=== PATIENT | female | born 1950 | race African-American/Black ===

== ENCOUNTER 2020-01-28 03:07 | Emergency (ER) | payer MEDICARE, SELFPAY ==
--- NOTE | ~2020-01-28 | XR_ITS ---
EXAMINATION:XR_[id number]_CR, XR thoracic spine 2V DATE: 01/28/2020 04:57 INDICATION: Left-sided neck pain TECHNIQUE: 1. AP, lateral and odontoid views of the cervical spine are provided. 2. AP, lateral and lateral swimmer's views of the thoracic spine were obtained. COMPARISON: Lumbar spine MR dated 09/06/2017 FINDINGS: Cervical spine: C4-C7 laminectomies with instrumented posterior spinal fusion extending from C4 through T1 with bilat eral vertical ana lilia and screw fixation including lateral mass screws bilaterally at C4-C5, on the right at C6, and the left at C7 and with bilateral pedicle screws at T1. 1-2 mm retrolisthesis at C4-C5. V ertebral body heights are normal. Hypertrophic anterior endplate osteophytes from C4 through C7. Mild disc height loss at C5-6 and C6-7 with suggestion of possible developing fusion at the former. Odont oid is intact. Normal atlantoaxial interval. Prevertebral soft tissues are normal. Thin curvilinear wire-like metallic densities projecting over the skull on the lateral projection which are likely ex ternal to the patient. Thoracic spine: Alignment is normal. Vertebral body heights are normal. Severe disc height loss with degenerative end plate changes at T7-T8. Interval progression in additional severe disc height loss with prominent Mod ic type III sclerotic endplate changes at T11-T12. Mild disc height loss at many of the remaining lev els in the thoracic spine. Lung volumes appear small with elevation the right hemidiaphragm on the fr ontal projection. No evident airspace opacities, pleural effusion or pneumothorax in the visualized l ungs. IMPRESSION: 1. Moderate cervical thoracic spondylosis with C4-T1 instrumented posterior spinal fusion. Reviewed, dictated and finalized at location A. IMPRESSION: 1. Moderate cervical thoracic spondylosis with C4-T1 instrumented posterior spi nal fusion.
[2020-01-28 03:08] VITALS: BP 147/96; PULSE 85; RESP 15; TEMP 36.4; O2SAT 100
--- NOTE | 2020-01-28 04:25 | ED.BACK ---
HPI - Back Pain/Injury General Chief Complaint: Back Pain/Injury Stated Complaint: Left back pain Time Seen by Provider: 01/28/20 04:16 History of Present Illness HPI Narrative: Patient presents to the ED with her daughter for left-sided back pain. She has been going to physical therapy and she had her last session 3 days ago. In 2 days ago she started having left back pain. It hurts up by her shoulder blade, and down by her flank, and radiates in under her left breast. It is worse with lying flat. Better with sitting up. And intermediate when laying on either her right or left side. She normally takes gabapentin 300 mg 3 or 4 times a day for her pain. She also takes a muscle relaxer. Neither of these are helping. She is a dialysis patient. Is not been sick recently. She does not smoke cigarettes,, or do drug, or drink alcohol. MD elicited complaint: back pain Pertinent past history: back surgery (She has had both cervical and lumbar laminectomies.) Onset (ago): day(s) Timing: constant Severity: severe Pain scale (0-10): 5 Similar Symptoms Previously: Yes Related Data Home Medications Medication Instructions Recorded Confirmed amlodipine 10 mg tablet 10 mg PO DAILY 06/11/19 09/10/19 aspirin 81 mg tablet,delayed 81 mg PO DAILY 06/11/19 09/10/19 release ferrous sulfate 325 mg (65 mg 325 mg PO DAILY 06/11/19 09/10/19 iron) tablet gabapentin 300 mg capsule 300 mg PO DAILY 06/11/19 09/10/19 insulin glargine 100 unit/mL (3 30 unit SUB-Q DAILY 06/11/19 09/10/19 mL) subcutaneous pen magnesium 30 mg tablet 30 mg PO .q other day tablet 06/11/19 09/10/19 tizanidine 2 mg tablet 2 mg PO TID PRN 06/11/19 09/10/19 fluticasone propionate 50 2 spray NASAL DAILY 09/10/19 09/10/19 mcg/actuation nasal spray,suspension kpsalbjhdiov-otjaezlh-rmdarl 1 tablet PO DAILY 09/10/19 09/10/19 Allergies Allergy/AdvReac Type Severity Reaction Status Date / Time codeine Allergy Severe Hallucinati Verified 01/28/20 03:11 ng Sulfa (Sulfonamide Allergy Mild Itching Verified 08/10/20 03:11 Antibiotics) Review of Systems Review of Systems: Narrative: CONSTITUTIONAL: Denies fever, chills, or sweats. EYES: Denies visual changes, redness, or discharge. ENT: Denies rhinorrhea, congestion, sore throat, or otalgia. CARDIOVASCULAR: Denies chest pain, palpitations, or edema. RESPIRATORY: Denies cough or dyspnea. GASTROINTESTINAL: Denies abdominal pain, nausea, vomiting, or diarrhea. GENITOURINARY: Denies dysuria or hematuria. SKIN: Denies rash or itching. MUSCULOSKELETAL: She has back pain, but not joint pain, or myalgia. NEUROLOGIC: Denies headache, numbness, or weakness.. All systems reviewed & are unremarkable except as noted in HPI and below PMFSH Past Medical History Medical History Chronic kidney disease (CKD) stage G3a/A2, moderately decreased glomerular filtration rate (GFR) between 45-59 mL/min/1.73 square meter and albuminuria creatinine ratio between 30-299 mg/g Diabetes mellitus Essential (primary) hypertension Hypercalcemia Hyperparathyroidism Osteopenia Surgical History Surgical History History of back surgery History of neck surgery Family History Family History (Updated 12/07/17 @ 15:08 by DOCTOR UNKNOWN) Mother Hypertension, Onset Age: 53 Father Family history of lung cancer Sibling Family history of malignant neoplasm of ovary Family history of congestive heart failure Social History Social History Smoking status: Never smoker Alcohol intake: never Gender identity (if verbalized by the patient): Female Exam Narrative: Exam Narrative: GENERAL: Well-appearing, well-nourished, and in no acute distress. Curly wig. HEAD: Normocephalic, atraumatic. EYES: PERRLA and EOMI. ENT: Nares clear, no rhinorrhea or epista
[2020-01-28 05:26] VITALS: BP 148/94; PULSE 82; RESP 16; TEMP 36.9; O2SAT 100
== END 2020-01-28 05:26 | disposition home or self-care (01) ==
PROVIDERS: Emergency Provider Emergency Medicine; PCP Internal Medicine
DX: M54.14 Radiculopathy, thoracic region (principal); E11.22 Type 2 diabetes mellitus with diabetic chronic kidney disease; I12.9 Hypertensive chronic kidney disease with stage 1 through stage 4 chronic kidney disease, or unspecified chronic kidney disease; N18.3 Chronic kidney disease, stage 3 (moderate); Z79.82 Long term (current) use of aspirin; Z79.4 Long term (current) use of insulin; E83.52 Hypercalcemia; M85.80 Other specified disorders of bone density and structure, unspecified site
CPT/HCPCS: 72040; 72070; 99283; A9270

== ENCOUNTER → 2020-06-03 13:52 | Outpatient (CLI) | payer MEDICARE, SELFPAY ==
--- NOTE | ~2020-06-03 | MM_ITS ---
EXAMINATION: MM screening jensen BI w james HISTORY: Screening mammogram TECHNIQUE: Craniocaudal and mediolateral oblique 3-D tomosynthesis images were obtained and synthetic 2-D images were generated. CAD analysis was submitted and interpreted. COMPARISON: 01/23/2016, 01/20/2016 BREAST PARENCHYMAL COMPOSITION: The breasts are almost entirely fatty. FINDINGS: There is no evidence of suspicious mass, calcification, or architectural distortion to sugg est malignancy in either breast. There has been no suspicious interval change. IMPRESSION: 1. No mammographic evidence of malignancy. 2. Recommend routine screening mammography in one year. BI-RADS Category 1: Negative Reviewed, dictated and finalized at location A. Y PACKER
== END ==
PROVIDERS: PCP Internal Medicine; Visit Provider Internal Medicine
DX: Z12.31 Encounter for screening mammogram for malignant neoplasm of breast (principal)
CPT/HCPCS: 77063; 77067

== ENCOUNTER 2020-06-11 10:20 | Outpatient (CLI) | payer MEDICARE, SELFPAY ==
--- NOTE | ~2020-06-11 | US_ITS ---
Additional imaging US 06/25/2020 08:19 Indication: Splenomegaly. Procedure: High-resolution Limited ultrasound of the spleen Comparison: No prior studies for comparison. Findings: Splenic echotexture is within normal limits without focal mass or cyst. Splenic size is nor mal measuring 7.8 cm. Impression: 1: Normal spleen. Reviewed, dictated and finalized at location A. IAC CATHETERIZATION TECHNOLOGIST Impression: 1: Normal spleen.
--- NOTE | ~2020-06-11 | US_ITS ---
EXAMINATION: US soft tissue abdomen INDICATION: Mass and swelling of the left upper quadrant TECHNIQUE: Targeted high-resolution ultrasound is performed in the area of clinical concern. COMPARISON: None available FINDINGS: No discrete sonographically detected mass is identified. Normal subcutaneous tissues are se en. No abdominal wall hernia is appreciated. IMPRESSION: 1. No specific sonographic correlate is identified for the patient's left upper quadrant mass. Reviewed, dictated and finalized at location A. INE OILER
== END 2020-06-11 10:21 | disposition home or self-care (01) ==
PROVIDERS: PCP Internal Medicine; Visit Provider Internal Medicine
DX: R19.02 Left upper quadrant abdominal swelling, mass and lump (principal)
CPT/HCPCS: 76705

== ENCOUNTER 2020-12-29 14:35 | Emergency (ER) | payer MEDICARE, SELFPAY ==
--- NOTE | ~2020-12-29 | XR_ITS ---
EXAMINATION: XR chest 2V EXAM DATE: 12/29/2020 15:17 INDICATION: Cough for one month. History diabetes, hypertension. TECHNIQUE: Frontal and lateral projections of the chest obtained and reviewed. Comparison is made to prior examination from 04/28/2016. FINDINGS: The lungs are clear. There are no pleural effusions. The cardiomediastinal silhouette is within normal limits. There is no pneumothorax suspected. Cervicothoracic fusion hardware. There is tortuosity of the aorta. IMPRESSION: No acute cardiopulmonary findings. Reviewed, dictated and finalized at location A.
[2020-12-29 14:39] VITALS: BP 142/87; PULSE 82; RESP 16; TEMP 36.2; O2SAT 98
[2020-12-29 15:54] VITALS: O2SAT 98
--- NOTE | 2020-12-29 16:28 | ED.URI ---
HPI - URI/Sore Throat General Chief Complaint: Upper Respiratory Infection Stated Complaint: coughing [id number], drainage Time Seen by Provider: 12/29/20 15:29 Source: patient Mode of arrival: ambulatory Limitations: no limitations History of Present Illness HPI Narrative: This is a 70 year old female that presents to the ER for cough present over the last month. Reports cough, congestion and rhinorrhea. Denies fever, chest pain or shortness of breath. Related Data Home Medications Medication Instructions Recorded Confirmed amlodipine 10 mg tablet 10 mg PO DAILY 06/11/19 12/16/20 aspirin 81 mg tablet,delayed 81 mg PO DAILY 06/11/19 12/16/20 release ferrous sulfate 325 mg (65 mg 325 mg PO DAILY 06/11/19 12/16/20 iron) tablet fluticasone propionate 50 2 spray NASAL DAILY 09/10/19 12/16/20 mcg/actuation nasal spray,suspension pldxvytkrpbg-hogkohnt-wkmtmk tablet 1 tablet PO DAILY 09/10/19 12/16/20 tizanidine 2 mg tablet 4 mg PO ONCE PRN tablet 01/29/20 12/16/20 magnesium oxide 400 mg PO .COMPLEX 04/28/20 12/16/20 Allergies Allergy/AdvReac Type Severity Reaction Status Date / Time codeine Allergy Severe Hallucinati Verified 04/28/20 09:59 ng Sulfa (Sulfonamide Allergy Mild Itching Verified 04/28/20 09:59 Antibiotics) Review of Systems Review of Systems: Narrative: CONSTITUTIONAL: Denies fever ENT: Reports rhinorrhea, congestion. Denies sore throat CARDIOVASCULAR: Denies chest pain RESPIRATORY: Reports cough. Denies dyspnea. All systems reviewed & are unremarkable except as noted in HPI and below PMFSH Past Medical History Medical History (Updated 12/29/20 @ 16:37 by Sowmya Kaur PA-C) Chronic kidney disease (CKD) stage G3a/A2, moderately decreased glomerular filtration rate (GFR) between 45-59 mL/min/1.73 square meter and albuminuria creatinine ratio between 30-299 mg/g Diabetes mellitus Essential (primary) hypertension Hypercalcemia Hyperparathyroidism Osteopenia Surgical History Surgical History History of back surgery History of neck surgery Family History Family History (Updated 12/07/17 @ 15:08 by DOCTOR UNKNOWN) Mother Hypertension, Onset Age: 53 Father Family history of lung cancer Sibling Family history of malignant neoplasm of ovary Family history of congestive heart failure Social History Social History Smoking status: Never smoker Alcohol intake: never Gender identity (if verbalized by the patient): Female Exam Narrative: Exam Narrative: GENERAL: Well-appearing, well-nourished, and in no acute distress. HEAD: Normocephalic, atraumatic. EYES: EOMI. ENT: Nares clear, no rhinorrhea or epistaxis. Mucous membranes moist. Oropharynx without tonsillar hypertrophy exudate or other lesions. Bilateral TMs pearly corrales non-bulging NECK: Supple. No adenopathy or masses. CHEST: Clear to auscultation. No respiratory distress. No wheezes rales or rhonchi HEART: Regular rate and rhythm. No murmur heard. Normal peripheral pulses. EXTREMITIES: Normal range of motion. No edema. SKIN: Warm, dry, no rash. NEURO: No focal deficits. Alert and oriented x3. PSYCH: Normal mood and affect Course Vital Signs Vital signs: Vital Signs Temperature 97.2 F L 12/29/20 14:39 Pulse Rate 82 12/29/20 14:39 Respiratory Rate 16 12/29/20 14:39 Blood Pressure 142/87 H 12/29/20 14:39 Pulse Oximetry 98 12/29/20 14:39 Temperature 97.2 F L 12/29/20 14:39 Pulse Rate 82 12/29/20 14:39 Respiratory Rate 16 12/29/20 14:39 Blood Pressure 142/87 H 12/29/20 14:39 Pulse Oximetry 98 12/29/20 15:54 MDM - URI/Sore Throat MDM Narrative Medical decision making narrative: Patient presents to the ER for cough ongoing for the last month. She is afebrile and nontoxic appearing. Oxygen saturation is normal on room air. She denies any chest pain
== END 2020-12-29 16:53 | disposition home or self-care (01) ==
PROVIDERS: Emergency Provider Emergency Medicine; PCP Internal Medicine
DX: J20.9 Acute bronchitis, unspecified (principal); E11.22 Type 2 diabetes mellitus with diabetic chronic kidney disease; I12.9 Hypertensive chronic kidney disease with stage 1 through stage 4 chronic kidney disease, or unspecified chronic kidney disease; N18.31 Chronic kidney disease, stage 3a
CPT/HCPCS: 71046; 99283

== ENCOUNTER → 2021-01-14 13:13 | Outpatient (CLI) | payer MEDICARE, SELFPAY ==
--- NOTE | ~2021-01-14 | XR_ITS ---
EXAMINATION: XR hip RT min 2V DATE: 01/14/2021 13:31 INDICATION: Right hip pain. Neuralgia and neuritis. TECHNIQUE: Anteroposterior and frog-leg lateral views of the right hip were obtained. COMPARISON: None. FINDINGS: Alignment is normal. No fracture or suspected avascular necrosis. At least mild osteoarthritis at the right hip with moderate size marginal osteophytes about the femoral head and acetabulum but with onl y mild joint space narrowing evident on the frontal projections. Soft tissues are unremarkable. IMPRESSION: 1. Mild right hip osteoarthritis. Reviewed, dictated and finalized at location A.
== END ==
PROVIDERS: PCP Internal Medicine; Visit Provider Internal Medicine
DX: M79.2 Neuralgia and neuritis, unspecified (principal); M16.11 Unilateral primary osteoarthritis, right hip
CPT/HCPCS: 73502

== ENCOUNTER 2021-01-18 09:41 | Emergency (ER) | payer MEDICARE, SELFPAY ==
--- NOTE | ~2021-01-18 | CT_ITS ---
EXAMINATION: CT abdomen pelvis w con DATE: 01/18/2021 12:29 INDICATION: Generalized low back pain TECHNIQUE: Computed tomography (CT) of the abdomen and pelvis was performed with 100 mL Omnipaque-350 intravenous contrast. Automated exposure control and iterative reconstruction technique were employe d. The dose-length product was 1476.29 mGy-cm. COMPARISON: None FINDINGS: Lung bases are clear. Heart size is normal. No pericardial or pleural effusion. Liver, gallbladder, p ancreas and bilateral adrenal glands are normal. A few small splenic calcific lesions consistent with old granulomatous disease. Bilateral low-attenuation renal cysts the largest on the right measuring 2 cm. Bladder, uterus and right adnexa are normal. 1.2 cm left adnexal cyst/follicle. No abnormal bow el wall thickening or obstruction. Moderate amount of stool in the distal colon most prominent at the rectum. No free intraperitoneal gas or fluid. No pathologically enlarged abdominal or pelvic lymphad enopathy. Chronic severe disc height loss with sclerotic and erosive endplate changes at T11-T12 whic h can be seen on radiographs dated 01/28/2020. Mild lumbar degenerative disc disease with severe bilat eral lower lumbar facet osteoarthritis. L5 is sacralized on the right. Bone island at the right sacra l ala. IMPRESSION: 1. No acute intra-abdominal/pelvic process. 2. Thoracal lumbar spondylosis most notable for severe degenerative disc disease at T11-T12 and sever e lower lumbar facet osteoarthritis. 3. Small sliding-type hiatal hernia. Reviewed, dictated and finalized at location A. IMPRESSION: 1. No acute intra-abdominal/pelvic process. 2. Thoracal lumbar spondylosis most notable for severe degenerative disc diseas e at T11-T12 and severe lower lumbar facet osteoarthritis. 3. Small sliding-type hiatal hernia.
--- NOTE | ~2021-01-18 | XR_ITS ---
EXAMINATION: XR chest 1V portable DATE: 01/18/2021 10:33 INDICATION: Cough TECHNIQUE: frontal view of the chest was obtained. COMPARISON: Chest radiograph dated 12/29/20 FINDINGS: Chronic elevation of the right hemidiaphragm. No focal airspace opacities, pulmonary edema, pleural e ffusion or pneumothorax. The cardiomediastinal silhouette is normal. Extremity posterior spinal fusio n in the mid to lower cervical spine. IMPRESSION: 1. Elevation of the right hemidiaphragm. No acute cardiopulmonary disease. Reviewed, dictated and finalized at location A.
[2021-01-18 09:53] VITALS: BP 141/95; PULSE 100; RESP 22; TEMP 36.3; O2SAT 100
[2021-01-18 09:58] VITALS: PULSE 92
--- NOTE | 2021-01-18 09:58 | ECG_ITS ---
Measurements Intervals [place] Rate: 71 P: 37 ND: 139 QRS: 9 QRSD: 84 T: 30 QT: 366 QTc: 398 Interpretive Statements SINUS RHYTHM WITH SINUS ARRHYTHMIA BORDERLINE T WAVE ABNORMALITY- INFERIOR LEADS BASELINE ARTIFACT- II, III BORDERLINE ECG Electronically Signed On 01-18-2021 11:47:55 CDT by Kumar Olmstead D.O.
[2021-01-18 09:59] VITALS: O2SAT 100
[2021-01-18 10:26] LABS: Basophils Percent Auto 0.6 % (0.2-1.2); Eosinophils Absolute Auto 0.1 K/mm3 (0-0.3); Eosinophils Percent Auto 2.9 % (0-4.4); Hematocrit 35.7 % (37.0-47.0); Hemoglobin 11.6 g/dL (12.0-15.0); Immature Granulocyte Absolute 0.01 K/mm3 (0.00-0.031); Immature Granulocyte Percent A 0.2 % (0-0.5); Lymphocytes Absolute Auto 1.53 K/mm3 (0.9-3.2); Lymphocytes Percent Auto 31.5 % (18.3-44.2); Mean Corpuscular HGB Conc 32.5 g/dl (32-36); Mean Corpuscular Hemoglobin 26.9 pg (26-34); Mean Corpuscular Volume 82.6 fl (80-100); Monocytes Absolute Auto 0.4 K/mm3 (0.1-0.6); Monocytes Percent Auto 8.5 % (2.6-8.5); Neutrophils Absolute Auto 2.7 K/mm3 (1.3-6.7); Neutrophils Percent Auto 56.3 % (45.5-73.1); Platelet Count Result 323 k/mm3 (150-375); Red Blood Count 4.32 M/mm3 (4.2-5.4); White Blood Count 4.9 K/mm3 (4.5-10.0)
[2021-01-18 10:37] LABS: Anion Gap 11 mmol/L (8-16); Blood Urea Nitrogen 27 mg/dL (7-17); Calcium 12.1 mg/dL (8.4-10.2); Carbon Dioxide 22 mmol/L (22-30); Chloride 105 mmol/L (98-107); Estimated CRCL calculation 36 ml/min; Estimated Glomerular Filt Rate 32; Glucose 157 mg/dL (65-110); Potassium 4.6 mmol/L (3.4-5.0); Sodium 138 mmol/L (137-145)
[2021-01-18 11:27] LABS: INR 0.9; Prothrombin Time 11.7 Seconds (11.1-14.7)
[2021-01-18 11:28] LABS: Partial Thromboplastin Time 28.3 SECONDS (22.3-36.8)
[2021-01-18 11:30] LABS: D Dimer 0.31 ug/mL (<0.48)
[2021-01-18 11:37] LABS: NT Pro B Type Natriuretic Pept 159 pg/mL (5-100); Troponin I < 0.012 ng/mL (0.000-0.034)
[2021-01-18 12:13] VITALS: BP 118/72; PULSE 77; RESP 18; O2SAT 100
--- NOTE | 2021-01-18 12:49 | ED.SOB ---
HPI - SOB/Dyspnea General Chief Complaint: Shortness of Breath/Dyspnea Stated Complaint: SOB Time Seen by Provider: 01/18/21 10:17 Source: patient and RN notes reviewed Mode of arrival: ambulatory Limitations: no limitations History of Present Illness HPI Narrative: Patient is a 70-year-old female who presents to emergency department for evaluation of cough that is nonproductive initially began at the beginning of December was seen at an urgent care had seen primary care as well and was given steroids and treated as bronchitis she had interval improvement but continues to have this cough that she cannot shake she thought maybe it was postnasal drip which was addressed with medication also given an inhaler presents today noting that she continues to have the cough with pleuritic chest discomfort and now is having some abdominal discomfort as well. Patient denies history of lung disease Related Data Home Medications Medication Instructions Recorded Confirmed amlodipine 10 mg tablet 10 mg PO DAILY 06/11/19 01/05/21 aspirin 81 mg tablet,delayed 81 mg PO DAILY 06/11/19 01/05/21 release ferrous sulfate 325 mg (65 mg 325 mg PO DAILY 06/11/19 01/05/21 iron) tablet fluticasone propionate 50 2 spray NASAL DAILY 09/10/19 01/05/21 mcg/actuation nasal spray,suspension yzjircndoznc-limgmfmw-luvdnd tablet 1 tablet PO DAILY 09/10/19 01/05/21 tizanidine 2 mg tablet 4 mg PO ONCE PRN tablet 01/29/20 01/05/21 magnesium oxide 400 mg PO .COMPLEX 04/28/20 01/05/21 Allergies Allergy/AdvReac Type Severity Reaction Status Date / Time Sulfa (Sulfonamide Allergy Mild Itching Verified 01/18/21 10:01 Antibiotics) codeine AdvReac Severe Hallucinati Verified 01/18/21 10:01 ng Review of Systems Review of Systems: All systems reviewed & are unremarkable except as noted in HPI and below PMFSH Past Medical History Medical History Chronic kidney disease (CKD) stage G3a/A2, moderately decreased glomerular filtration rate (GFR) between 45-59 mL/min/1.73 square meter and albuminuria creatinine ratio between 30-299 mg/g Diabetes mellitus Essential (primary) hypertension Hypercalcemia Hyperparathyroidism Low back pain Osteopenia Surgical History Surgical History History of back surgery History of neck surgery Family History Family History (Updated 12/07/17 @ 15:08 by DOCTOR UNKNOWN) Mother Hypertension, Onset Age: 53 Father Family history of lung cancer Sibling Family history of malignant neoplasm of ovary Family history of congestive heart failure Social History Social History Smoking status: Never smoker Alcohol intake: never Gender identity (if verbalized by the patient): Female Exam Narrative: GENERAL: Well-appearing, well-nourished, and in no acute distress. HEAD: Normocephalic, atraumatic. EYES: PERRLA and EOMI. ENT: Nares clear, no rhinorrhea or epistaxis. Mucous membranes moist. NECK: Supple. No adenopathy or masses. CHEST: Clear to auscultation. No respiratory distress. No wheezes rales or rhonchi HEART: Regular rate and rhythm. No murmur heard. Normal peripheral pulses. ABDOMEN: Soft, tenderness in the lower quadrants of the abdomen, nondistended EXTREMITIES: Normal range of motion. No edema. SKIN: Warm, dry, no rash. NEURO: No focal deficits. Alert and oriented x3. Cranial nerves II through XII grossly intact PSYCH: Normal mood and affect. Course Course Emergency Course: Patient evaluated in the emergency department for bronchitis-like scenario will be referred to pulmonology ABCs and vital signs intact and stable will be treated supportively there is no pneumonia seen on exam felt appropriate for outpatient reevaluation Vital Signs Vital signs: Vital Signs Temperature 97.3 F L 01/18/21 09:53 Pul
[2021-01-18] MEDS: BENZONATATE 100 MG CAPSULE 200 MG PO (13:01)
[2021-01-18 14:09] VITALS: BP 108/73; PULSE 75; RESP 17; O2SAT 100
== END 2021-01-18 14:10 | disposition home or self-care (01) ==
PROVIDERS: Emergency Medicine Emergency Medical Services; Emergency Provider Emergency Medicine; PCP Internal Medicine
DX: J40 Bronchitis, not specified as acute or chronic (principal); E11.22 Type 2 diabetes mellitus with diabetic chronic kidney disease; I12.9 Hypertensive chronic kidney disease with stage 1 through stage 4 chronic kidney disease, or unspecified chronic kidney disease; N18.31 Chronic kidney disease, stage 3a; Z79.4 Long term (current) use of insulin; Z79.82 Long term (current) use of aspirin; R94.31 Abnormal electrocardiogram [ECG] [EKG]; K44.9 Diaphragmatic hernia without obstruction or gangrene; M47.814 Spondylosis without myelopathy or radiculopathy, thoracic region; M51.34 Other intervertebral disc degeneration, thoracic region; M47.816 Spondylosis without myelopathy or radiculopathy, lumbar region
CPT/HCPCS: 36415; 71045; 74177; 80048; 83880; 84484; 85025; 85380; 85610; 85730; 93005; 99284; A9270; Q9967

== ENCOUNTER 2021-02-04 12:32 | Outpatient (CLI) | payer MEDICARE, SELFPAY ==
--- NOTE | 2021-02-05 08:02 | WPDPFTINT ---
PFT Procedure Performed PFT Procedure Performed Spirometry with Pre/Post Bronchodilator Plethysmography (Lung Vol) Diffusing Cap (DLCO) Flow Vol Loop PFT Interpretation This is a pulmonary function test with pre and post-bronchodilator spirometry, plethysmography and diffusing capacity. The test was performed and results interpreted in accordance with the 2019 and 2005 ATS/ERS Task Force guidelines respectively using the Global Lung Function Initiative-2012 reference equations. Patient demonstrated good effort and cooperation but did experience some difficulty performing the spirometry.. Reproducibility criteria were met. The quality of the pre bronchodilator spirometry maneuver was Grade B and post bronchodilator spirometry maneuver was Grade B. Findings: Spirometry: The contour the inspiratory and expiratory flow tracing are normal. The pre bronchodilator FVC is 2.04 L, 73% predicted. The pre bronchodilator FEV1 is 1.68 L, 77% predicted. The FEV1: FVC ratio was 82%. The post bronchodilator FVC is 1.89 L, representing a 7% decrease. The post bronchodilator FEV1 is 1.50 L, representing 11% decrease. Plethysmography: The total lung capacity is 4.22 L, 85% predicted. The functional residual capacity is 2.33 L, 72% predicted. The residual volume is 2.18 L, 98% predicted. Diffusing capacity: The absolute diffusion capacity is 15.5, 70% predicted. The diffusing capacity corrected for alveolar volume is 5.67, 138% predicted. Impression: The spirometry is normal without evidence of an obstructive abnormality. There is no significant improvement after inhaling a single dose of albuterol. The lung volumes are normal. The absolute diffusion capacity is mildly decreased and Is increased when corrected for alveolar volume. There are no prior studies for comparison
--- NOTE | 2021-02-05 08:07 | WPDPFTINT ---
PFT Procedure Performed PFT Procedure Performed Spirometry with Pre/Post Bronchodilator Plethysmography (Lung Vol) Diffusing Cap (DLCO) Flow Vol Loop PFT Interpretation This is a pulmonary function test with pre and post-bronchodilator spirometry, plethysmography and diffusing capacity. The test was performed and results interpreted in accordance with the 2019 and 2005 ATS/ERS Task Force guidelines respectively using the Global Lung Function Initiative-2012 reference equations. Patient demonstrated good effort and cooperation. Reproducibility criteria were met. The quality of the pre bronchodilator spirometry maneuver was Grade B and post bronchodilator spirometry maneuver was Grade A. Findings: Spirometry: the contour the inspiratory and expiratory flow tracing are normal. The pre bronchodilator FVC is 2.00 L, 70% predicted. The pre bronchodilator FEV1 is 1.62 L, 72% predicted. The FEV1: FVC ratio was 81%. The post bronchodilator FVC is 1.96 L, representing a 2% decrease. The post bronchodilator FEV1 is 1.46 L, representing a 10% decrease. Plethysmography: The total lung capacity is 4.18 L, 89% predicted. Functional residual capacity is 2.06 L, 77% predicted. The residual volume is 2.04 L, 105% predicted. Diffusing capacity: The absolute diffusion capacity is 14.8, 73% predicted. The diffusing capacity corrected for alveolar volume is 5.00, 111% predicted. Impression: The spirometry is normal without evidence of an obstructive abnormality. The lung volumes are normal without evidence of and restrictive abnormality. The FVC and FEV1 are mildly decreased without an obstructive or restrictive abnormality. This is an abnormal but nonspecific finding. There is no significant improvement after inhaling a single dose of albuterol. The diffusing capacity is normal. There are no prior studies for comparison
== END 2021-02-04 12:33 | disposition home or self-care (01) ==
PROVIDERS: PCP Internal Medicine; Visit Provider Internal Medicine
DX: R05 Cough (principal)
CPT/HCPCS: 94060; 94726; 94729

== ENCOUNTER 2021-02-26 09:00 | Outpatient (CLI) | payer MEDICARE, SELFPAY ==
--- NOTE | ~2021-02-26 | CT_ITS ---
EXAMINATION: CT diagnostic chest w con EXAM DATE: 02/26/2021 10:10 INDICATION: R05 - Cough . TECHNIQUE: Spiral CT of the chest following intravenous injection of 75 mL Omnipaque 350. Axial, cor onal and sagittal images of the chest were reviewed. Coronal maximum intensity pixel images of chest reviewed. The dose-length product (DLP) for this examination was 315.19 mGy-cm. The exposure was t ailored according to patient size (auto mA exposure control), and iterative reconstruction (ASIR) was used as additional dose reduction technique. Correlation is made to chest x-ray 01/18/2021. FINDINGS: The lungs are clear. There are no pleural or pericardial effusions. Tracheobronchial t ree is patent. There is no mediastinal, hilar or axillary lymphadenopathy. There is no pneumothor ax. Heart normal in size. There is mild coronary arterial calcification, arterial sclerosis. Upp er abdomen is unremarkable. There is moderate thoracic spondylosis without osteoblastic or osteolyt ic lesions identified. IMPRESSION: Unremarkable chest CT exam. Reviewed, dictated and finalized at location A. IMPRESSION: Unremarkable chest CT exam.
[2021-02-26 10:00] LABS: Estimated Glomerular Filt Rate 30
== END 2021-02-26 09:01 | disposition home or self-care (01) ==
PROVIDERS: PCP Internal Medicine; Visit Provider Clinical Nurse Specialist
DX: R05 Cough (principal)
CPT/HCPCS: 71260; Q9967

== ENCOUNTER 2021-12-31 09:15 | Outpatient (CLI) | payer MEDICARE, SELFPAY ==
[2021-12-31 20:11] LABS: Anion Gap 13 mmol/L (8-16); Blood Urea Nitrogen 30 mg/dL (7-17); Calcium 10.5 mg/dL (8.4-10.2); Carbon Dioxide 21 mmol/L (22-30); Chloride 105 mmol/L (98-107); Estimated Glomerular Filt Rate 34; Glucose 145 mg/dL (65-110); Magnesium 2.1 mg/dL (1.6-2.3); Potassium 4.2 mmol/L (3.4-5.0); Sodium 139 mmol/L (137-145)
[2022-01-04 03:22] LABS: Ionized Calcium 5.5 mg/dL (4.8-5.6)
== END 2021-12-31 09:16 | disposition home or self-care (01) ==
LOC: ANHGOSHLAB 09:16
PROVIDERS: PCP Internal Medicine; Visit Provider Internal Medicine
DX: E83.52 Hypercalcemia (principal); E83.42 Hypomagnesemia
CPT/HCPCS: 36415; 80048; 82330; 83735

== ENCOUNTER 2022-02-08 17:16 | Emergency (ER) | payer MEDICARE, SELFPAY ==
--- NOTE | ~2022-02-08 | XR_ITS ---
EXAM: XR toe 1st RT min 2V DATE: 02/08/2022 18:57 HISTORY: stubbed toe, nail plate traumatically removed . COMPARISON: None available. FINDINGS: Right first proximal phalange cerclage wire. Severely decreased mineralization. No fractur e or dislocation. No lytic or blastic lesion. Joint spaces are maintained. No erosion or periosteal c hange. Soft tissues within normal limits. IMPRESSION: No acute osseous finding in the right first toe. Reviewed, dictated and finalized at location K.
[2022-02-08 17:19] VITALS: BP 146/79; PULSE 70; RESP 20; TEMP 36.7; O2SAT 100
--- NOTE | 2022-02-08 18:26 | ED.EXTPRO ---
HPI - Extremity Problem General Chief complaint: Extremity Problem,Nontraumatic Stated complaint: toe infection? Time Seen by Provider: 02/08/22 18:12 History of Present Illness HPI Narrative: Pt is a 71 y/o female, PMHx of DM, presents to ED via POV with right great toe nail pain after she stubbed the toe on a door frame two days ago, traumatically removing the nail plate. Since that time, the nail bed has oozed. She denies any additional injuries. Her FSBS this am was 104; noting she is well controlled. She cannot recall when her last tetanus was received. Related Data Home Medications Medication Instructions Recorded Confirmed aspirin 81 mg tablet,delayed 81 mg PO DAILY 06/11/19 12/31/21 release (Adult Aspirin Regimen) ferrous sulfate 325 mg (65 mg 325 mg PO DAILY 06/11/19 12/31/21 iron) tablet rrnbbaulebdb-ysauowua-iylebp tablet 1 tablet PO DAILY 09/10/19 12/31/21 tizanidine 2 mg tablet 4 mg PO ONCE PRN Spasms 01/29/20 12/31/21 calcium carbonate 500 mg calcium 500 mg PO BID 12/31/21 12/31/21 (1,250 mg) tablet (Oyster Shell Calcium) Allergies Allergy/AdvReac Type Severity Reaction Status Date / Time Sulfa (Sulfonamide Allergy Mild Itching Verified 12/31/21 08:49 Antibiotics) codeine AdvReac Severe Hallucinati Verified 12/31/21 08:49 ng Review of Systems Musculoskeletal: Comments: refer to HPI Integumentary/Breasts: Comments: refer to HPI [facility] Past Medical History Medical History Chronic kidney disease (CKD) stage G3a/A2, moderately decreased glomerular filtration rate (GFR) between 45-59 mL/min/1.73 square meter and albuminuria creatinine ratio between 30-299 mg/g Diabetes mellitus Essential (primary) hypertension Hypercalcemia Hyperparathyroidism Low back pain Osteopenia Parathyroid gland disorder Surgical History Surgical History H/O parathyroidectomy History of back surgery History of neck surgery Family History Family History Mother Hypertension, Onset Age: 53 Father Family history of lung cancer Sibling Family history of malignant neoplasm of ovary Family history of congestive heart failure Social History Social History Smoking status: Never smoker Alcohol intake: never Gender identity (if verbalized by the patient): Female Exam Const: General: healthy appearing, no acute distress and alert HENMT: Head: normal to inspection Eyes: Conjunctivae: conjunctivae normal Pupils: Equal, round and reactive pupils present EOM: EOMs intact bilaterally Neck: Neck: normal visual inspection, no lymphadenopathy and no meningeal signs Resp: Effort & Inspection: normal respiratory effort Auscultation: clear to auscultation bilaterally Cardio: Rate: regular rate Skin: Other: Pt has an avulsed, absent right great toe nail plate, no active bleeding, no oozing or discharge. There is TTP over the entire right great toe, no crepitus or deformity, distal PMS intact Neuro: General: patient oriented x3, moves all extremities, no focal motor deficits and CN's II-XI intact bilaterally Extrem: Other: see skin exam Course Course Emergency Course: plain film imaging provides no evidence of fracture. imaging results discussed with patient and discharge plan with oral abx, topical bactroban, FU with podiatry Vital Signs Vital signs: Vital Signs Temperature 36.7 C 02/08/22 17:19 Pulse Rate 70 02/08/22 17:19 Respiratory Rate 20 02/08/22 17:19 Blood Pressure 146/79 H 02/08/22 17:19 Pulse Oximetry 100 02/08/22 17:19 Oxygen Delivery Room Air 02/08/22 17:19 Temperature 36.7 C 02/08/22 17:19 Pulse Rate 70 02/08/22 17:19 Respiratory Rate 20 02/08/22 17:19 Blood Pressure 146/79 H 02/08/22 17:1
[2022-02-08] MEDS: TETANUS,DIPHTHERIA,AC PERTUSSIS ADULT (0.5 ML) BOOSTRIX IM (19:39)
[2022-02-08 19:52] VITALS: BP 140/72; PULSE 76; RESP 18; O2SAT 100
== END 2022-02-08 19:54 | disposition home or self-care (01) ==
PROVIDERS: Emergency Provider Nurse Practitioner Family; PCP Internal Medicine
DX: S91.201A Unspecified open wound of right great toe with damage to nail, initial encounter (principal); W22.09XA Striking against other stationary object, initial encounter; I12.9 Hypertensive chronic kidney disease with stage 1 through stage 4 chronic kidney disease, or unspecified chronic kidney disease; E11.22 Type 2 diabetes mellitus with diabetic chronic kidney disease; N18.31 Chronic kidney disease, stage 3a; E21.3 Hyperparathyroidism, unspecified; Z23 Encounter for immunization
CPT/HCPCS: 73660; 90471; 90715; 99283

== ENCOUNTER → 2022-05-26 08:45 | Outpatient (CLI) | payer MEDICARE, SELFPAY ==
--- NOTE | ~2022-05-26 | DEXA_ITS ---
Bone Density Report Name: CAT HATCH Age: 72 Sex: Female Ethnicity: Black Date of : 1950 Indication: hyperparathyroidism; height loss; postmenopausal Referring Provider: Jimi Rodriguez Study: Bone densitometry was performed. Exam Date: May 26, 2022 Accession number: [id number] Bone Density: Region BMD T-score Z-score Classification AP Spine (L1, L4) 1.357 2.9 4.4 Normal Femoral Neck (Left) 0.750 -0.9 0.1 Normal Total Hip (Left) 1.083 1.2 1.5 Normal Femoral Neck (Right) 0.706 -1.3 -0.2 Osteopenia Total Hip (Right) 0.989 0.4 0.9 Normal Total Hip Mean 1.036 0.8 1.2 Normal World Health Organization criteria for BMD impression classify patients as: Normal (T-score at or above -1.0), Osteopenia (T-score between -1.0 and -2.5), or Osteoporosis (T-score at or below -2.5). 10-year Fracture Risk(1): Major Osteoporotic Fracture 4.3% Hip Fracture 0.6% Reported Risk Factors: [place] (Black), Neck BMD=0.706, BMI=30.2 (1) FRAX(R) Version 3.08. Fracture probability calculated for an untreated patient. Fracture probability may be lower if the patient has received treatment. Previous Exams: Region Exam Age BMD T-score BMD Change BMD Change Date g/cm2 vs Baseline vs Previous AP Spine(L1, L4) 05/26/2022 72 1.357 2.9 0.176* 0.176* 08/10/2018 68 1.181 1.3 Total Hip(Left) 05/26/2022 72 1.083 1.2 -0.052* -0.052* 08/10/2018 68 1.136 1.6 Total Hip(Right) 05/26/2022 72 0.989 0.4 -0.034* -0.034* 08/10/2018 68 1.023 0.7 *Denotes significance at 95% confidence level, LSC for AP Spine = 0.022 g/cm2, LSC for Total Hip = 0.027 g/cm2 Clinical Information Provided by Patient: Has used the following medications: Calcium, MTV Has the following medical conditions: Hyperparathyroidism, parathyroid removed Patient maximum height was 68 Menopause Age: 50 No regular weight bearing exercise Does not regularly consume dairy products Drinks caffeinated beverages Onset of menses at age 16 Number of children 1 Impression: The patient has low bone mass, based on the Right Femoral Neck T-score. The patient has an estimated ten-year risk of hip fracture of 0.6% and an estimated ten-year risk of major fracture of 4.3%, based on the WHO FRAX algorithm. The BMD for the Total Hip(Left) decreased, changing by -0.052 since the last DXA exam. The BMD for the Total Hip(Right) decreased,
== END ==
PROVIDERS: PCP Internal Medicine; Visit Provider Internal Medicine
DX: M85.80 Other specified disorders of bone density and structure, unspecified site (principal); E83.52 Hypercalcemia; Z78.0 Asymptomatic menopausal state
CPT/HCPCS: 77080

== ENCOUNTER → 2022-11-10 13:53 | Outpatient (CLI) | payer MEDICARE, SELFPAY ==
--- NOTE | ~2022-11-10 | MM_ITS ---
EXAMINATION: MM screening [facility] BI w james HISTORY: Screening mammogram TECHNIQUE: Craniocaudal and mediolateral oblique 3-D tomosynthesis images were obtained and synthetic 2-D images were generated. CAD analysis was submitted and interpreted. COMPARISON: 06/03/2020, 01/23/2016, 01/20/2016 BREAST PARENCHYMAL COMPOSITION: The breasts are almost entirely fatty. FINDINGS: No suspicious mass, calcification, or architectural distortion are identified in either efrain ast to suggest malignancy. There has been no suspicious interval change. IMPRESSION: 1. No mammographic evidence of malignancy. 2. Recommend routine screening mammography in one year. BI-RADS Category 1: Negative Reviewed, dictated and finalized at location A.
== END ==
PROVIDERS: PCP Internal Medicine; Visit Provider Internal Medicine
DX: Z12.31 Encounter for screening mammogram for malignant neoplasm of breast (principal)
CPT/HCPCS: 77063; 77067

== ENCOUNTER → 2023-01-04 12:49 | Outpatient (CLI) | payer MEDICARE, SELFPAY ==
--- NOTE | ~2023-01-04 | MR_ITS ---
MRI of the cervical spine Clinical History: Pain Technique: Axial T2-weighted and gradient images, and sagittal T1-weighted, T2-weighted, and STIR wayne ges were acquired. Findings: There is posterior fusion from C4 through T1, with posterior rods and transpedicular screws present. There are laminectomy defects at C4, C5, and C6. No acute fracture identified. There is gra de 1 anterolisthesis of C6 over C7, measuring approximately 4 mm. No suspicious bone marrow signal ab normality seen. At C2-C3, there is minimal central disc bulge. No spinal canal stenosis, cord compression, or definit e neural foraminal narrowing. At C3-C4, there is mild disc osteophyte complex. Right facet arthropathy contributes to right neural foraminal narrowing. No left neural foraminal narrowing. No central canal stenosis or cord compressio n. At C4-C5, there is disc osteophyte complex but there is posterior decompression. No spinal canal sten osis or cord compression. Bilateral neural foramina are preserved. At C5-C6, there is disc osteophyte complex with severe degenerative disc narrowing, but there is post erior decompression. No spinal canal stenosis or cord compression. There is probable bilateral neural foraminal narrowing, left worse than right. At C6-C7, there is disc osteophyte complex, but there is posterior decompression. No spinal canal zan nosis or definite cord compression. There is probable bilateral neural foraminal narrowing. No abnormal signal evident in the spinal cord. Paravertebral soft tissues demonstrate expected postop erative change.. Impression: Posterior fusion from C4 through T1, with associated hardware and laminectomy defects, as detailed ab ove. 4 mm anterolisthesis of C6 over C7. Mild degenerative spondylosis otherwise, as detailed above. Reviewed, dictated and finalized at location . Impression: Posterior fusion from C4 through T1, with associated hardware and laminectomy d efects, as detailed above. 4 mm anterolisthesis of C6 over C7. Mild degenerative spondylosis otherwise, as detailed above.
--- NOTE | ~2023-01-04 | MR_ITS ---
MRI of the lumbar spine Clinical History: Lower extremity pain Technique: Axial T2-weighted images, and sagittal T1-weighted, T2-weighted, and and T2 fat-sat images were acquired. COMPARISON: 09/06/2017 Findings: No acute fracture identified. 3 mm anterolisthesis of L4 over L5 present. Probable minimal grade 1 anterolisthesis of L3 over L4. No suspicious bone marrow signal abnormality seen. At L1-L2, there is no disc bulge or herniation. There is moderate to advanced facet arthropathy. No s eliane canal stenosis or neural foraminal narrowing. At L2-L3, there is disc bulge and severe facet arthropathy. There is moderate to severe central canal stenosis/thecal sac compression. There is advanced left neural foraminal narrowing and mild to moder ate right neural foraminal narrowing. At L3-L4, disc bulge and severe facet arthropathy are present, with resultant moderate to severe spin al canal stenosis and thecal sac compression. There is severe right neural foraminal narrowing, and m oderate to severe left neural foraminal narrowing. At L4-L5, there is diffuse disc bulge and severe facet arthropathy. There is bilateral lateral recess stenosis with severe left neural foraminal narrowing, and moderate to severe right neural foraminal narrowing. At L5-S1, there is mild diffuse disc bulge with moderate to advanced facet arthropathy. No central ca nal stenosis. There is moderate to advanced bilateral neural foraminal narrowing. Paravertebral soft tissues are unremarkable. Impression: Severe degenerative spondylosis, as detailed above. 3 mm anterolisthesis of L4 over L5. Minimal grade 1 anterolisthesis of L3 over L4. Reviewed, dictated and finalized at location . Impression: Severe degenerative spondylosis, as detailed above. 3 mm anterolisthesis of L4 over L5. Minimal grade 1 anterolisthesis of L3 over L4.
--- NOTE | ~2023-01-04 | XR_ITS ---
XR lumbar spine 6V w bending DATE: 01/04/2023 14:13 INDICATION: Back pain TECHNIQUE: Standing AP, lateral, bilateral oblique views and coned lateral lumbosacral view. Standing flexion and extension lateral views. COMPARISON: 06/04/2016 lumbar spine FINDINGS: There is diffuse osteopenia. Slight lumbar dextroscoliosis. The lumbar pedicles are intact. No fracture or bone destruction is evident. There is prominent degenerative change at the apophyseal joints of the lumbar spine with associated g rade 1 anterolisthesis at L4-5. There is moderate loss of height at L4-5. There is severe degenerative disc disease at L5-S1. No instability is noted on flexion or extension. The sacroiliac joints are intact. There is a very prominent amount of fecal material in the rectum and colon. IMPRESSION: Grade 1 anterolisthesis at L4-5 due to degenerative change at the apophyseal joints Moderate degenerative disc disease at L4-5 and severe degenerative disc disease at L5-S1 Osteopenia Very prominent amount of fecal material in the rectum and colon Reviewed, dictated and finalized at location L. IMPRESSION: Grade 1 anterolisthesis at L4-5 due to degenerative change at the a pophyseal joints Moderate degenerative disc disease at L4-5 and severe degenerative disc disease at L5-S1 Osteopenia Very prominent amount of fecal material in the rectum and colon
== END ==
PROVIDERS: PCP Anesthesiology Pain Medicine; Visit Provider Anesthesiology Pain Medicine
DX: M25.511 Pain in right shoulder (principal); M25.512 Pain in left shoulder; Z98.1 Arthrodesis status; M51.36 Other intervertebral disc degeneration, lumbar region; M51.37 Other intervertebral disc degeneration, lumbosacral region; M85.88 Other specified disorders of bone density and structure, other site; M50.30 Other cervical disc degeneration, unspecified cervical region
CPT/HCPCS: 72114; 72141; 72148

== ENCOUNTER 2023-05-24 10:19 | Outpatient (CLI) | payer MEDICARE, SELFPAY ==
--- NOTE | ~2023-05-24 | XR_ITS ---
XR chest 2V 05/24/2023 11:32 Indication: Spinal stenosis. Preop. Procedure: 2 view chest Comparison: Comparison to multiple prior studies sequentially, with oldest reviewed study dated 03/20. Findings: Heart size normal. There is thoracic aortic ectasia. Chronic elevation of the right diaphra gm. No focal air space disease, pulmonary edema, pleural effusion or suspected pneumothorax. Impression: 1: No acute cardiopulmonary disease. Reviewed, dictated and finalized at location L. ISTICAL TYPIST Impression: 1: No acute cardiopulmonary disease.
--- NOTE | 2023-05-24 10:36 | ECG_ITS ---
Measurements Intervals [place] Rate: 79 P: 34 NV: 147 QRS: -5 QRSD: 80 T: 34 QT: 367 QTc: 422 Interpretive Statements SINUS RHYTHM NONSPECIFIC T-WAVE ABNORMALITY COMPARED TO ECG 01/18/2021 10:25:35 T-WAVE ABNORMALITY NOW PRESENT Electronically Signed On 05-24-2023 13:36:05 [employer]OR[employer] PHYSICIAN by Velia Levy M.D.
[2023-05-24 10:40] LABS: Basophils Percent Auto 0.7 % (0.2-1.2); Eosinophils Absolute Auto 0.1 K/mm3 (0-0.3); Eosinophils Percent Auto 1.8 % (0-4.4); Hematocrit 35.5 % (37.0-47.0); Hemoglobin 11.6 g/dL (12.0-15.0); Immature Granulocyte Absolute 0.02 K/mm3 (0.00-0.031); Immature Granulocyte Percent A 0.4 % (0-0.5); Lymphocytes Absolute Auto 1.91 K/mm3 (0.9-3.2); Lymphocytes Percent Auto 33.6 % (18.3-44.2); Mean Corpuscular HGB Conc 32.7 g/dl (32-36); Mean Corpuscular Hemoglobin 27.1 pg (26-34); Mean Corpuscular Volume 82.9 fl (80-100); Monocytes Absolute Auto 0.4 K/mm3 (0.1-0.6); Monocytes Percent Auto 6.3 % (2.6-8.5); Neutrophils Absolute Auto 3.3 K/mm3 (1.3-6.7); Neutrophils Percent Auto 57.2 % (45.5-73.1); Platelet Count Result 350 k/mm3 (150-375); Red Blood Count 4.28 M/mm3 (4.2-5.4); Red Cell Distribution Width 14.4 % (11.5-14.5); White Blood Count 5.7 K/mm3 (4.5-10.0)
[2023-05-24 10:53] LABS: Prothrombin Time 14.1 Seconds (11.1-14.7)
[2023-05-24 10:54] LABS: Partial Thromboplastin Time 34.1 SECONDS (22.3-36.8)
[2023-05-24 10:55] LABS: Anion Gap 8 mmol/L (8-16); Blood Urea Nitrogen 54 mg/dL (7-17); Calcium 9.6 mg/dL (8.4-10.2); Carbon Dioxide 26 mmol/L (22-30); Chloride 99 mmol/L (98-107); Estimated Glomerular Filt Rate 31; Glucose 316 mg/dL (65-110); Potassium 4.8 mmol/L (3.4-5.0); Sodium 133 mmol/L (137-145)
== END 2023-05-24 10:20 | disposition home or self-care (01) ==
PROVIDERS: PCP Internal Medicine; Visit Provider Anesthesiology Pain Medicine
DX: Z01.818 Encounter for other preprocedural examination (principal); R94.31 Abnormal electrocardiogram [ECG] [EKG]; I12.9 Hypertensive chronic kidney disease with stage 1 through stage 4 chronic kidney disease, or unspecified chronic kidney disease; E11.22 Type 2 diabetes mellitus with diabetic chronic kidney disease; M48.062 Spinal stenosis, lumbar region with neurogenic claudication; M54.51 Vertebrogenic low back pain
CPT/HCPCS: 36415; 71046; 80048; 85025; 85610; 85730; 93005

== ENCOUNTER 2023-05-31 05:48 | Day surgery (SDC) | payer MEDICARE, SELFPAY ==
[2023-05-25 08:04] VITALS: BMI 30.8
[2023-05-31] VITALS (8 sets, daily range): BP systolic 99–134; BP diastolic 66–95; PULSE 64–91; RESP 15–20; TEMP 36.2–36.8; O2SAT 95–100
--- NOTE | ~2023-05-31 | XR_ITS ---
EXAMINATION: XR fluoroscopy no charge INDICATION: Bilateral T12-L1, L3-4, and L4-5 lumbar decompression TECHNIQUE: 22 intraoperative fluoroscopic images are submitted for review. Total fluoroscopic time wa s 202.9 seconds. COMPARISON: None available FINDINGS: Provided fluoroscopic images demonstrate instrumentation of the lower thoracic and lumbar s pine at various levels. Please refer to procedure note for full details. IMPRESSION: 1. Please refer to procedure note for full details. Reviewed, dictated and finalized at location L. [facility] [employer]
--- NOTE | 2023-05-31 05:21 | PM.HPGS ---
History of Present Illness History of Present Illness Consent: Risks, benefits, and alternatives have been discussed and questions answered. Patient agrees to proceed with procedure. 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 Review of Systems Review of Systems: All systems reviewed & are unremarkable except as noted in HPI and below PMFSH Past Medical History Medical History Chronic kidney disease (CKD) stage G3a/A2, moderately decreased glomerular filtration rate (GFR) between 45-59 mL/min/1.73 square meter and albuminuria creatinine ratio between 30-299 mg/g Cough Diabetes mellitus Diabetes mellitus with chronic kidney disease Essential (primary) hypertension Hypercalcemia Hyperparathyroidism Low back pain Osteopenia Parathyroid gland disorder Type 2 diabetes mellitus with chronic kidney disease Surgical History Surgical History H/O parathyroidectomy History of back surgery History of neck surgery Family History Family History Mother Hypertension, Onset Age: 53 Father Family history of lung cancer Sibling Family history of malignant neoplasm of ovary Family history of congestive heart failure Social History Social History Smoking status: Never smoker Second hand tobacco smoke exposure: No Alcohol intake: never Substance use: never Substance use type: does not use Lack of Transportation: No Lack of Food: Never True Current Housing: I Have Housing Concerned About Future Housing: No Difficulty Paying Gas/Electric Bills: No Difficulty Paying for Meds: No Currently Unemployed: No Education: Bachelor's Degree Difficulty w/ Childcare or Family Care: No Living arrangements: alone Gender identity (if verbalized by the patient): Female Spiritual care concerns: No Meds Home Medications and Allergies Home Medications Medication Instructions Recorded Confirmed Type aspirin 81 mg tablet,delayed 81 mg PO DAILY 06/11/19 05/24/23 History release (Adult Aspirin Regimen) ferrous sulfate 325 mg (65 mg 325 mg PO DAILY 06/11/19 05/24/23 History iron) tablet dclxqvleceyo-zozatbyg-nieods tablet 1 tablet PO DAILY 09/10/19 05/24/23 History loratadine 10 mg tablet (Claritin) 10 mg PO DAILY PRN allergy 01/18/21 05/24/23 Rx symptoms #10 tabs spironolactone 25 mg tablet See Rx Instructions .Route 09/28/21 05/24/23 Rx .COMPLEX #90 tabs atorvastatin 40 mg tablet See Rx Instructions .Route 09/06/22 05/24/23 Rx .COMPLEX #90 tabs blood sugar diagnostic (OneTouch #300 strips 09/16/22 03/03/23 Rx Ultra Test strips) lancets 30 gauge (OneTouch Delica #300 ea 01/03/23 03/03/23 Rx Plus Lancet) furosemide 20 mg tablet 20 mg PO .QOD #50 tabs 02/07/23 05/24/23 Rx losartan 100 mg tablet See Rx Instructions .Route 03/10/23 05/24/23 Rx .COMPLEX #50 tabs montelukast 10 mg tablet See Rx Instructions .Route 03/16/23 05/24/23 Rx .COMPLEX #90 tabs magnesium oxide 400 mg PO .QOD #45 tabs 04/25/23 05/24/23 Rx amlodipine 10 mg tablet See Rx Instructions .Route 04/27/23 05/24/23 Rx .COMPLEX #90 tabs insulin glargine 100 unit/mL (3 See Rx Instructions .Route 04/27/23 05/25/23 Rx mL) subcutaneous pen (Lantus .COMPLEX #15 mL Solostar U-100 Insulin) metoprolol succinate 25 mg See Rx Instructions .Route 04/27/23 05/24/23 Rx tablet,extended release 24 hr .COMPLEX #90 tabs pen needle,
--- NOTE | 2023-05-31 05:27 | WPDHPUPDATE1 ---
History and Physical Update Update Date/Time: 05/31/23 05:27 History and Physical has been reviewed, including an updated exam of the patient. There are NO changes in the patient's condition. Risks, benefits, and alternatives have been discussed and questions answered. Patient agrees to proceed with procedure.
[2023-05-31 06:34] LABS: Glucose Point of Care 125 mg/dl (65-105)
[2023-05-31] MEDS: LACTATED RINGERS 1,000 ML 30 ML IV CONT (07:24)
--- NOTE | 2023-05-31 07:25 | WPDANESEPPF ---
Anes - Initial Pre Proc Eval Procedure: Operation Date: 05/31/23 07:30 Proposed Procedures p Bilateral T12-L1, L3-4, L4-5 Minimally Invasive Lumbar Decompression, Possible Epidurogram - Raad Hannah MD Date/Time: 05/31/23 07:25 Surgeon: Raad Hannah MD Pre Op Diagnosis: Spinal Stenosis Patient Data Age: 73 Gender: F Height: 1.73 m Weight: 90.8 kg Allergies Allergy/AdvReac Type Severity Reaction Status Date / Time Sulfa (Sulfonamide Allergy Mild Itching Verified 05/31/23 06:22 Antibiotics) codeine AdvReac Severe Hallucinati Verified 05/31/23 06:22 ng Home Medications Medication Instructions Recorded Confirmed Type aspirin 81 mg tablet,delayed 81 mg PO DAILY 06/11/19 05/31/23 History release (Adult Aspirin Regimen) ferrous sulfate 325 mg (65 mg 325 mg PO DAILY 06/11/19 05/31/23 History iron) tablet fmecqmmgzbpd-rnnolnyv-mbokpg tablet 1 tablet PO DAILY 09/10/19 05/31/23 History loratadine 10 mg tablet (Claritin) 10 mg PO DAILY PRN allergy 01/18/21 05/31/23 Rx symptoms #10 tabs spironolactone 25 mg tablet See Rx Instructions .Route 09/28/21 05/31/23 Rx .COMPLEX #90 tabs atorvastatin 40 mg tablet See Rx Instructions .Route 09/06/22 05/31/23 Rx .COMPLEX #90 tabs blood sugar diagnostic (OneTouch #300 strips 09/16/22 03/03/23 Rx Ultra Test strips) lancets 30 gauge (OneTouch Delica #300 ea 01/03/23 03/03/23 Rx Plus Lancet) furosemide 20 mg tablet 20 mg PO .QOD #50 tabs 02/07/23 05/31/23 Rx losartan 100 mg tablet See Rx Instructions .Route 03/10/23 05/31/23 Rx .COMPLEX #50 tabs montelukast 10 mg tablet See Rx Instructions .Route 03/16/23 05/31/23 Rx .COMPLEX #90 tabs magnesium oxide 400 mg PO .QOD #45 tabs 04/25/23 05/31/23 Rx amlodipine 10 mg tablet See Rx Instructions .Route 04/27/23 05/31/23 Rx .COMPLEX #90 tabs insulin glargine 100 unit/mL (3 See Rx Instructions .Route 04/27/23 05/31/23 Rx mL) subcutaneous pen (Lantus .COMPLEX #15 mL Solostar U-100 Insulin) metoprolol succinate 25 mg See Rx Instructions .Route 04/27/23 05/31/23 Rx tablet,extended release 24 hr .COMPLEX #90 tabs pen needle, diabetic 31 gauge x #100 ea 05/09/23 Rx 5/16 (BD Ultra-Fine Short Pen Needle) calcium carbonate 500 mg calcium 500 mg PO TID #90 tabs 05/23/23 05/31/23 Rx (1,250 mg) tablet (Oyster Shell Calcium) Laboratory Tests 05/31/23 06:30 POC Capillary Glucose 125 H mg/dl (65-105) Patient hx anesthesia problems: none Family hx anesthesia problems: none Results Review: All pre-operative results and documents have been reviewed as part of the pre-operative evaluation. [facility] Past Medical History Medical History Chronic kidney disease (CKD) stage G3a/A2, moderately decreased glomerular filtration rate (GFR) between 45-59 mL/min/1.73 square meter and albuminuria creatinine ratio between 30-299 mg/g Cough Diabetes mellitus Diabetes mellitus with chronic kidney disease Essential (primary) hypertension Hypercalcemia Hyperparathyroidism Low back pain Osteopenia Parathyroid gland disorder Type 2 diabetes mellitus with chronic kidney disease Surgical History Surgical History H/O parathyroidectomy History of back surgery History of neck surgery Family History Family History Mother Hypertension, Onset Age: 53 Father Family history of lung cancer Sibling Family history of malignant neoplasm of ovary Family history of congestive heart failure Social History Social History Smoking status: Never smoker Second hand tobacco smoke exposure: No Alcohol intake: never Substance use: never Substance use type: does not use Lack of Transportation: No Lack of Food: Never True Current Hous
[2023-05-31] MEDS: ceFAZolin SODIUM 2 GM/20 ML SW SYRINGE IV PUSH (07:50)
[2023-05-31] MEDS: LIDOCAINE HCL 2% PF INJ 5 ML VIAL INFILTRATE (07:51)
--- NOTE | 2023-05-31 09:06 | W.PM.PROC2 ---
Procedure Note - Detailed Date of Procedure 05/31/23 Pre-op Diagnosis Spinal Stenosis with neurogenic claudication Post-op Diagnosis Same Procedure Performed Bilateral T12-L1, L3-4, L4-5 minimally invasive lumbar decompression under fluoroscopic guidance. Surgeon Raad Hannah MD Anesthesia MAC and Local Description of Procedure INFORMED CONSENT: Risks, benefits, and alternatives to the procedure were discussed in detail with the patient who expressed explicit understanding and consent to proceed. Risks discussed with the patient included but were not limited to risk of serious local or systemic infection, bleeding/bruising, epidural hematoma, dural puncture or tear resulting in CSF leak and acute or chronic post-dural puncture headache, scarring/deformity, immediate or delayed allergic reaction, decreased mobility, failure to treat pain, inadvertent neurologic injury resulting in increased pain, weakness/paralysis or numbness, inadvertent organ injury, need for additional surgery, allergic reaction, heart attack, stroke, seizure, coma, . Anesthetic risks were also briefly discussed by myself and the special education case manager. The patient expressed understanding and consent to proceed, agreeing that potential benefits outweigh risk of harm. All materials required for the procedure were immediately available prior to procedure start. Site and side were confirmed with the patient, compared carefully to the patient chart and consent, and marked prior to transport to the operating room. Appropriate time out procedure was performed per protocol prior to procedure start. PROCEDURE IN DETAIL: The patient was brought to the operative suite and placed in the prone position. Appropriate ASA standard monitors were attached. Anesthesia was initiated without difficulty or event. Eyes were protected. Pressure points were padded with joints in neutral position. When appropriate, breasts and genitals were evaluated and protected. Eyes were checked and were free from undue pressure. Skin overlying the procedure site was marked with sterile marker. Surgical area was prepared in a typical sterile fashion with ChloraPrep and allowed to dry for at least 3 minutes prior to sterilely draping the surgical site. The lumbar spine was identified in the AP fluoroscopic view with slight cephalad tilt perfectly aligning the endplates at the targeted levels with spinous processes bisecting the transpedicular plane. After identifying the intended incision site approximately 1.5 levels inferior to the level of interest, the area was anesthetized by infiltration with no more than 10ml of a 1:1 admixture of 0.5% PF bupivacaine with epinephrine and 2% PF lidocaine with epinepherine via a 27-gauge needle after negative aspiration. A 22-gauge spinal needle was used to provide additional and adequate local anesthesia to the level of the interspinous ligament, ligamentum flavum and the periosteum of the lamina at the intended treatment levels. In the AP view, a #11 scalpel blade was used to create a single stab incision at the intended incision site on the targeted side. The Vertos MILD kit was opened and the included cannula and trocar assembly was advanced through the incision to contact the midportion of the right lamina just adjacent to the spinous process at L5. Once seated, the lateral view was used to gauge depth demonstrating the most anterior tip of the trocar posterior to the epidural space at all times. The frame maker-provided cannula stabilizer was placed over the trocar flush to the patient's lumbar flank. Cannula obturator with handle was removed. Included depth guide was then attached to the insertion port on the cannula and set to an intial depth of 15 mm. The bone rongeur was advanced to the depth of the lumbar lamina at the targeted level. Depth gauge was then adjusted allowing rongeur tip to advance in the contralateral oblique view to the anterior border of the superior and i
--- NOTE | 2023-05-31 09:47 | WPDANESPN ---
Anes - Prog Note Post-Op Date/Time: 05/31/23 09:47 Cardiovascular status: normal Respiratory status: normal Airway patency: baseline Mental status: baseline Post-Op hydration status: normal Vital Signs: Last Vital Signs Temp 36.2 C L 05/31/23 09:03 Pulse 66 05/31/23 09:30 Resp 15 05/31/23 09:30 BP 105/66 05/31/23 09:30 Pulse Ox 98 05/31/23 09:30 O2 Del Method Room Air 05/31/23 09:30 Pain Score (VAS): 0/10 I/O: Intake & Output 05/30/23 05/31/23 05/31/23 23:59 07:59 15:59 Intake Total 850 Balance 850 05/31/23 06:30 POC Capillary Glucose 125 H Patient Feedback: Patient satisfied with anesthetic care.
== END 2023-05-31 10:11 | disposition home or self-care (01) ==
PROVIDERS: PCP Internal Medicine; Visit Provider Anesthesiology Pain Medicine
PROC: (CPT 0275T; principal; 2023-05-31 07:30)
DX: M48.062 Spinal stenosis, lumbar region with neurogenic claudication (principal); Z00.6 Encounter for examination for normal comparison and control in clinical research program
CPT/HCPCS: 0275T; 99199

== ENCOUNTER 2023-08-29 12:29 | Outpatient (CLI) | payer MEDICARE, SELFPAY ==
[2023-08-29 20:04] LABS: Hemoglobin A1C 7.7 % (<5.7)
[2023-08-29 20:07] LABS: Anion Gap 8 mmol/L (8-16); Blood Urea Nitrogen 44 mg/dL (7-17); Calcium 9.2 mg/dL (8.4-10.2); Carbon Dioxide 28 mmol/L (22-30); Chloride 103 mmol/L (98-107); Estimated Glomerular Filt Rate 36; Glucose 136 mg/dL (65-110); Potassium 4.3 mmol/L (3.4-5.0); Sodium 139 mmol/L (137-145)
== END 2023-08-29 12:30 | disposition home or self-care (01) ==
LOC: ANHGOSHLAB 12:32
PROVIDERS: PCP Internal Medicine; Visit Provider Internal Medicine
DX: E11.22 Type 2 diabetes mellitus with diabetic chronic kidney disease (principal)
CPT/HCPCS: 36415; 80048; 83036

== ENCOUNTER 2024-02-27 15:12 | Outpatient (CLI) | payer MEDICARE, SELFPAY ==
--- NOTE | ~2024-02-27 | MM_ITS ---
EXAMINATION: MM screening jensen BI w james HISTORY: Screening mammogram TECHNIQUE: Craniocaudal and mediolateral oblique 3-D tomosynthesis images were obtained and synthetic 2-D images were generated. CAD analysis was submitted and interpreted. COMPARISON: 11/10/2022, 06/03/2020 BREAST PARENCHYMAL COMPOSITION:Not Dense. The breasts are almost entirely fatty FINDINGS: No suspicious mass, calcification, or architectural distortion are identified in either efrain ast to suggest malignancy. There has been no suspicious interval change. IMPRESSION: No mammographic evidence of malignancy. Recommend routine screening mammography in one year. BI-RADS Category 1: Negative Reviewed, dictated and finalized at location .
== END 2024-02-27 15:13 | disposition home or self-care (01) ==
LOC: MICIMG 15:12
PROVIDERS: PCP Internal Medicine; Visit Provider Internal Medicine
DX: Z12.31 Encounter for screening mammogram for malignant neoplasm of breast (principal)
CPT/HCPCS: 77063; 77067

== ENCOUNTER 2024-02-28 10:04 | Emergency (ER) | payer MEDICARE, SELFPAY ==
--- NOTE | ~2024-02-28 | XR_ITS ---
EXAMINATION: XR chest 2V DATE: 02/28/2024 10:38 INDICATION: Chest pain. Right arm pain. TECHNIQUE: Frontal and lateral views of the chest were obtained. COMPARISON: Chest 2 views 05/24/2023 FINDINGS: Again seen is eventration of anterior right hemidiaphragm. There is stable mild scarring at the lung apices. No pneumonia, pleural effusion, or pneumothorax. The heart size is normal. There ar e changes of posterior fusion procedure in cervical thoracic spine. IMPRESSION: 1. No acute cardiopulmonary disease. Reviewed, dictated and finalized at location A.
--- NOTE | 2024-02-28 10:05 | ECG_ITS ---
Test Date: 2024-02-28 10:13:27 Measurements Intervals [place] Rate: 83 P: 32 ME: 150 QRS: -9 QRSD: 87 T: 34 QT: 350 QTc: 413 Interpretive Statements SINUS RHYTHM DELAYED PRECORDIAL R/S TRANSITION NONSPECIFIC T-WAVE ABNORMALITY- DIFFUSE LEADS BORDERLINE ECG No previous ECG available for comparison Electronically Signed On 02-28-2024 10:15:24 CDT by Kumar Olmstead D.O.
[2024-02-28 10:15] VITALS: BP 136/98; PULSE 89; RESP 20; TEMP 36.8; O2SAT 100
[2024-02-28 10:28] LABS: Basophils Percent Auto 0.7 % (0.2-1.2); Eosinophils Absolute Auto 0.1 K/mm3 (0-0.3); Eosinophils Percent Auto 3.1 % (0-4.4); Hematocrit 40.7 % (37.0-47.0); Hemoglobin 13.5 g/dL (12.0-15.0); Immature Granulocyte Absolute 0.03 K/mm3 (0.00-0.031); Immature Granulocyte Percent A 0.7 % (0-0.5); Lymphocytes Absolute Auto 1.66 K/mm3 (0.9-3.2); Lymphocytes Percent Auto 36.3 % (18.3-44.2); Mean Corpuscular HGB Conc 33.2 g/dl (32-36); Mean Corpuscular Hemoglobin 27.1 pg (26-34); Mean Corpuscular Volume 81.7 fl (80-100); Mean Platelet Volume 9.3 fl (7.4-10.4); Monocytes Absolute Auto 0.4 K/mm3 (0.1-0.6); Monocytes Percent Auto 7.9 % (2.6-8.5); Neutrophils Absolute Auto 2.4 K/mm3 (1.3-6.7); Neutrophils Percent Auto 51.3 % (45.5-73.1); Platelet Count Result 404 k/mm3 (150-375); Red Blood Count 4.98 M/mm3 (4.2-5.4); Red Cell Distribution Width 14.9 % (11.5-14.5); White Blood Count 4.6 K/mm3 (4.5-10.0)
[2024-02-28 10:38] LABS: Prothrombin Time 13.1 Seconds (11.1-14.7)
[2024-02-28 10:39] LABS: Partial Thromboplastin Time 31.6 Seconds (22.3-36.8)
[2024-02-28 10:45] LABS: Alanine Aminotransferase 73 U/L (6-35); Albumin Level 4.9 g/dL (3.5-5.1); Alkaline Phosphatase 68 U/L (38-126); Anion Gap 14 mmol/L (4-12); Aspartate Amino Transferase 42 U/L (14-36); Bilirubin,Total 0.5 mg/dL (0.2-1.3); Blood Urea Nitrogen 35 mg/dL (7-17); Calcium 9.9 mg/dL (8.4-10.2); Carbon Dioxide 25 mmol/L (22-30); Chloride 101 mmol/L (98-107); Estimated CRCL calculation 25 ml/min; Estimated Glomerular Filt Rate 33; Glucose 122 mg/dL (65-110); Lipase 447 U/L (23-300); Potassium 4.4 mmol/L (3.4-5.0); Sodium 140 mmol/L (137-145)
[2024-02-28 10:57] LABS: Troponin I < 0.012 ng/mL (0.000-0.034)
[2024-02-28 12:25] VITALS: BP 123/93; PULSE 82; RESP 16; O2SAT 100
[2024-02-28 12:26] VITALS: PULSE 81
--- NOTE | 2024-02-28 12:42 | ECG_ITS ---
Test Date: 2024-02-28 12:56:26 Measurements Intervals [place] Rate: 76 P: 0 MS: 0 QRS: -10 QRSD: 89 T: 24 QT: 361 QTc: 407 Interpretive Statements SINUS RHYTHM LEFT VENTRICULAR HYPERTROPHY NONSPECIFIC T-WAVE ABNORMALITY- INF/LAT LEADS BORDERLINE ECG Compared to ECG 02/28/2024 10:13:27 NO SIGNIFICANT CHANGE Electronically Signed On 02-28-2024 13:19:51 CDT by Kumar Olmstead D.O.
--- NOTE | 2024-02-28 13:11 | ED.GENADULT ---
HPI - General Adult General Chief complaint: Chest Pain Stated complaint: chest pain Time Seen by Provider: 02/28/24 12:31 History of Present Illness HPI narrative: Patient is a 70-year-old female presents emergency department with chief complaint of chest discomfort. Patient reports he has been having some discomfort her chest drip at patient also reports she has recently had a cough patient states that she noticed a rash show up on her right shoulder and onto the back patient reports that itches and perez Related Data Home Medications Medication Instructions Recorded Confirmed aspirin 81 mg tablet,delayed 81 mg PO DAILY 06/11/19 02/22/24 release (Adult Aspirin Regimen) ferrous sulfate 325 mg (65 mg 325 mg PO DAILY 06/11/19 02/22/24 iron) tablet fahnconmhmdn-iprrmaun-eybiqx tablet 1 tablet PO DAILY 09/10/19 02/22/24 Allergies Allergy/AdvReac Type Severity Reaction Status Date / Time Sulfa (Sulfonamide Allergy Mild Itching Verified 02/27/24 08:26 Antibiotics) codeine AdvReac Severe Hallucinati Verified 02/27/24 08:26 ng Review of Systems Review of Systems: A 10 system review of systems was completed on the patient and is negative except for what is stated in the HPI. Nursing and ancillary documentation was reviewed. 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 Surgical History Surgical History H/O parathyroidectomy History of back surgery History of neck surgery Family History Family History Mother Hypertension, Onset Age: 53 Father Family history of lung cancer Sibling Family history of malignant neoplasm of ovary Family history of congestive heart failure Social History Social History Smoking status: Never smoker Second hand tobacco smoke exposure: No Alcohol intake: never Substance use: never Substance use type: does not use Do You Feel Safe in your Home?: Yes Lack of Transportation: No Lack of Food: Never True Current Housing: I Have Housing Concerned About Future Housing: No Difficulty Paying Gas/Electric Bills: No Difficulty Paying for Meds: No Currently Unemployed: No Education: Bachelor's Degree Difficulty w/ Childcare or Family Care: No Living arrangements: alone Gender identity (if verbalized by the patient): Female Spiritual care concerns: No Exam Narrative: GENERAL: Well-appearing, well-nourished, and in no acute distress. HEAD: Normocephalic, atraumatic. EYES: PERRLA and EOMI. ENT: Nares clear, no rhinorrhea or epistaxis. Mucous membranes moist. NECK: Supple. CHEST: Clear to auscultation. No respiratory distress. HEART: Regular rate and rhythm. No murmur heard. Normal peripheral pulses. ABDOMEN: Soft, nontender, nondistended, normal active bowel sounds. EXTREMITIES: Normal range of motion. No edema. SKIN: Warm, dry, zoster form rash present to the right shoulder. NEURO: No focal deficits. Alert and oriented x3. PSYCH: Normal mood and affect. Course Course Emergency Course: Differential diagnosis includes ACS, non cardiac chest pain, zoster, viral illness, pneumonia, pneumothorax Chest x-ray showed no focal infiltrate no evidence of pneumothorax EKG showed no acute ischemic changes Patient had AST and ALT of 42 and 7
[2024-02-28 13:28] LABS: Troponin I < 0.012 ng/mL (0.000-0.034)
== END 2024-02-28 14:57 | disposition home or self-care (01) ==
PROVIDERS: Student in an Organized Health Care Education/Training Program; Emergency Provider Emergency Medicine; PCP Internal Medicine
DX: R07.89 Other chest pain (principal); B02.9 Zoster without complications; E11.22 Type 2 diabetes mellitus with diabetic chronic kidney disease; I12.9 Hypertensive chronic kidney disease with stage 1 through stage 4 chronic kidney disease, or unspecified chronic kidney disease; N18.31 Chronic kidney disease, stage 3a; M85.80 Other specified disorders of bone density and structure, unspecified site; Z90.89 Acquired absence of other organs; Z79.82 Long term (current) use of aspirin; Z79.85 Long-term (current) use of injectable non-insulin antidiabetic drugs; Z79.4 Long term (current) use of insulin; Z79.899 Other long term (current) drug therapy; R94.31 Abnormal electrocardiogram [ECG] [EKG]; I51.7 Cardiomegaly
CPT/HCPCS: 36415; 71046; 80053; 83690; 84484; 85025; 85610; 85730; 93005; 99284

== ENCOUNTER 2024-05-01 06:14 | Day surgery (SDC) | payer MEDICARE, SELFPAY ==
[2024-04-17 09:39] VITALS: BMI 28.0
--- NOTE | ~2024-05-01 | XR_ITS ---
EXAMINATION: XR fluoroscopy no charge DATE: 05/01/2024 07:45 INDICATION: Right L3-L4 and L4-L5 transforaminal epidural steroid injections. TECHNIQUE: 82 fluoroscopic images of the lumbar spine were obtained during procedure performed by Dr. Hannah. Radiologist was not present for the imaging or procedure. The amount of fluoroscopy time used during this procedure was 0.3 minutes. COMPARISON: None. FINDINGS: Images demonstrate a pair of needles with tips advanced to the posterior superior aspect of the right L3-L4 and L4-L5 neural foramina. Digital subtraction images during contrast injections demonstrate f ree flow of contrast into the epidural space along side the exiting right L3 and L4 nerve roots witho ut evident intravascular for intrathecal contrast. IMPRESSION: 1. Fluoroscopy utilized during right L3-L4 and L4-L5 transforaminal injections. See procedure note fo r further detail. Reviewed, dictated and finalized at location B. T RELATIONS RECEPTIONIST IMPRESSION: 1. Fluoroscopy utilized during right L3-L4 and L4-L5 transforaminal injections. See procedure note for further detail.
--- NOTE | 2024-05-01 04:49 | PM.HPGS ---
History of Present Illness History of Present Illness Consent: Risks, benefits, and alternatives have been discussed and questions answered. Patient agrees to proceed with procedure. Chief complaint: Lumbosacral Radiculopathy, lumbar spinal stenosis Narrative: Maryam Erazo is a 74 year old female with chronic, recalcitrant and disabling right-sided lumbar radiculopathy secondary to degenerative spondylosis and stenosis with failure to respond to aggressive conservative measures including PT, oral and topical analgesics, opioid and nonopioid analgesics, rest, time and activity/behavioral modification over the past 1-2 years who presents for right-sided L3-4, L4-5 transforaminal epidural steroid injection under fluoroscopic guidance and with contrast control. Review of Systems Review of Systems: Patient denies any new infectious, allergic, cardiopulmonary, neurologic or constitutional symptoms or changes in activity tolerance or exercise capacity including new or progressive SOB/RIOS, peripheral edema, productive cough, dysuria, nausea/vomiting, diarrhea, weight change, fevers/chills/night sweats, new or progressive neurologic deficit, cognitive or mood changes since last seen, except as documented in the HPI. [facility] Past Medical History Medical History (Updated 04/16/24 @ 13:11 by GT Hewitt-Karly) Chronic kidney disease (CKD) stage G3a/A2, moderately decreased glomerular filtration rate (GFR) between 45-59 mL/min/1.73 square meter and albuminuria creatinine ratio between 30-299 mg/g Cough Diabetes mellitus Diabetes mellitus with chronic kidney disease Essential (primary) hypertension Hypercalcemia Hyperparathyroidism Low back pain Osteopenia Parathyroid gland disorder Post herpetic neuralgia Type 2 diabetes mellitus with chronic kidney disease Surgical History Surgical History H/O parathyroidectomy History of back surgery History of neck surgery Family History Family History Mother Hypertension, Onset Age: 53 Father Family history of lung cancer Sibling Family history of malignant neoplasm of ovary Family history of congestive heart failure Social History Social History Smoking status: Never smoker Second hand tobacco smoke exposure: No Alcohol intake: never Substance use: never Substance use type: does not use Do You Feel Safe in your Home?: Yes Lack of Transportation: No Lack of Food: Never True Current Housing: I Have Housing Concerned About Future Housing: No Difficulty Paying Gas/Electric Bills: No Difficulty Paying for Meds: No Currently Unemployed: No Education: Bachelor's Degree Difficulty w/ Childcare or Family Care: No Living arrangements: alone Gender identity (if verbalized by the patient): Female Spiritual care concerns: No Meds Home Medications and Allergies Home Medications Medication Instructions Recorded Confirmed Type aspirin 81 mg tablet,delayed 81 mg PO DAILY 06/11/19 04/17/24 History release (Adult Aspirin Regimen) ferrous sulfate 325 mg (65 mg 325 mg PO DAILY 06/11/19 04/17/24 History iron) tablet muaytunpppwv-dnhizwhh-mhsxrc tablet 1 tablet PO DAILY 09/10/19 04/17/24 History loratadine 10 mg tablet (Claritin) 10 mg PO DAILY PRN allergy 01/18/21 04/17/24 Rx symptoms #10 tabs calcium carbonate (Oyster Shell 500 mg PO TID #270 tabs 07/22/23 04/17/24 Rx Calcium) tirzepatide 7.5 mg/0.5 mL 7.5 mg (0.5 mL) subcut WEEKLY #2 mL 09/07/23 04/17/24 Rx subcutaneous pen injector (Sara) lancets 30 gauge (AngioScoreuch Delcorinne #300 ea 09/28/23 04/16/24 Rx Plus Lancet) atorvastatin 20 mg tablet See Rx Instructions .Route 10/17/23 04/17/24 Rx .COMPLEX #90 tabs insulin glargine 100 unit/mL (3 5 unit (0.05 mL) subcut QPM #15 mL 12/27/23 04/17/24 Rx mL) subcutaneous pen (Lantus Solostar U-100 Insulin) losartan 100 mg tablet See Rx Instructions .Route 12/29/23 04/17/24 Rx .COMPLEX #50 tabs blood sugar diagnostic (revoPTTouch #300 strips 02/08/24 04/16/24 Rx Ultra Test strips) dapagliflozin propanediol 5 mg 5 mg PO QAM #90 tabs 02/29/24 04/17/24 Rx tablet (Farxiga) amlodipine 10 mg tablet See Rx Instructions .Route 03/26/24 04/17/24 Rx .COMPLEX #90 tabs metoprolol succinate 25 mg See Rx Instructions .Route 03/29/24 04/17/24 Rx tablet,extended release 24 hr .COMPLEX #90 tabs pregabalin 25 mg capsule 25 mg PO TID PRN nerve pain #60 03/29/24 04/17/24 Rx caps montelukast 10 mg tablet See Rx Instructions .Route 04/17/24 04/17/24 History .COMPLEX PRN allergies pen needle, diabetic 31 gauge x #100 ea 04/19/24 Rx 5/16 (BD Ultra-Fine Short Pen Needle) furosemide 20 mg tablet 20 mg PO .QOD #50 tabs 04/24/24 Rx Allergies Allergy/AdvReac Type Severity Reaction Status Date / Time Sulfa (Sulfonamide Allergy Mild Itching Verified 04/17/24 09:41 Antibiotics) codeine AdvReac Severe Hallucinati Verified 04/17/24 09:41 ng Exam Narrative: The patient's physical exam is essentially unchanged from prior examination on 02/27/2024. Specifically, patient demonstrates normal lung capacity, tidal volume and respiratory rate without wheezes, crackles, rales or rubs. Heart rate and rhythm are regular without murmurs, gallops or rubs. No JVD. Pulses 2+ globally without increasing peripheral edema. AAOx3, NC/AT without acute distress or altered consciousness. Speech, cognition, mood and judgment at baseline and within normal limits. Const: General: cooperative, no acute distress, alert and awake Orientation/consciousness: patient oriented x3 Assessment and Plan Assessment and plan (1) Postlaminectomy syndrome: Code(s): M96.1 - Postlaminectomy syndrome, not elsewhere classified Status: Acute (2) Lumbosacral radiculopathy: Code(s): M54.17 - Radiculopathy, lumbosacral region Status: Acute (3) Spinal stenosis, lumbar region with neurogenic claudication: Code(s): M48.062 - Spinal stenosis, lumbar region with neurogenic claudication Status: Acute Plan proceed as planned with right-sided L3-4, L4-5 transforaminal epidural steroid injection under fluoroscopic guidance with contrast control.
--- NOTE | 2024-05-01 04:53 | WPDHPUPDATE1 ---
History and Physical Update Update Date/Time: 05/01/24 04:53 History and Physical has been reviewed, including an updated exam of the patient. There are NO changes in the patient's condition. Risks, benefits, and alternatives have been discussed and questions answered. Patient agrees to proceed with procedure.
--- NOTE | 2024-05-01 04:54 | P.OP_ITS ---
Procedure Note - Detailed Date of Procedure 05/01/24 Pre-op Diagnosis Lumbosacral Radiculopathy, lumbar spinal stenosis Post-op Diagnosis Same Procedure Performed Right Lumbar Transforaminal Epidural Steroid Injection under Fluoroscopic Guidance and with Contrast Control at L3-4, L4-5. Surgeon Raad Hannah MD Anesthesia Local Description of Procedure INFORMED CONSENT: Risks, benefits and alternatives to the procedure were discussed in detail with the patient who expressed explicit understanding and consent to proceed. Patient was informed verbally and in written form regarding the risks associated with the procedure including the low risk of serious infection, bleeding/bruising, allergic reaction, nerve or organ injury, paralysis, procedural site pain or discomfort, worsening pain and/or mobility, failure to treat and/or disfigurement. The patient expressed explicit understanding and consent to proceed. All materials required for the procedure were available prior to procedure start. Site and side was marked prior to procedure and confirmed in the presence of the patient. PROCEDURE IN DETAIL: The patient was brought to the procedural suite and placed in the prone position. Patient was made comfortable with use of pillows under the head/chest, hips and ankles. Skin overlying the injection site was prepared broadly with ChloraPrep applicator and draped in a sterile manner. Aseptic technique was employed throughout. The endplates of the vertebral body at the site of interest were aligned in the AP view. Ipsilateral oblique angulation was utilized to better visualize the neuroforamen of interest. Local anesthesia was established by infiltration with approximately 5 mL of 0.5% PF lidocaine via a 1-1/2 inch 27-gauge needle. A 22-gauge 3.5 inch Jenna (pencil point) spinal needle was advanced until the needle approached the 6 o'clock position on the pedicle just superior to the exiting nerve root. on the right at L4-5. Lateral view was utilized to confirm appropriate position of the needle tip within the superior and posterior portion of the respective foramen. In an AP view, 1 mL of Omnipaque 300 contrast medium was injected after negative aspiration for CSF, blood or other bodily fluid, showing appropriate neurogram without evidence of intravascular or intrathecal spread of contrast. Digital subtraction imaging was used with an additional 1ml of the same contrast medium to confirm absence of intravascular contrast spread. A 1mL solution containing 3 mg of betamethasone was injected after negative repeat aspiration. Appropriate spread of the injectate was confirmed with washout of previously injected contrast. No parasthesias were elicited. Needle was removed completely intact without difficulty. The same exact procedure was repeated for all remaining levels on the ipsilateral side, right L3-4 neuroforamen, modified as necessary to accommodate for the new target location with identical findings and results and no evidence of complication. Images were saved and documented in the patient chart. Patient's skin was c leaned and sterile bandage applied. The patient tolerated the procedure well. The patient was transported to the recovery area in stable condition where they were observed for an appropriate amount of time prior to discharge, without evidence of complication. The patient was instructed to avoid excessive activity for the next 48 hours, including climbing and frequent use of stairs. Showers only for 48 hours. They were instructed not to drive or operate heavy machinery for 24 hours. They are to monitor for severe headaches, fevers, chills, night sweats, erythema/swelling at the site or any other signs of infection, bleeding/bruising, bowel or bladder changes as well as new pain, weakness or numbness in the upper or lower extremity. Should they notice these changes, they are instructed to call our office immediately or report directly to the nearest Emergency Department if no answer or if after posted office hours. COMPLICATIONS: None COMMENTS: None CONTRAST WASTED: 26 mL Omnipaque 300. STEROID WASTED: 0 mg of betamethasone. Complications No immediate complications Condition Stable Disposition Same day [facility] Billing Surgery - Charge Forward: Surgery Billing
[2024-05-01 06:48] VITALS: BP 141/95; PULSE 76; RESP 14; TEMP 37; O2SAT 100
[2024-05-01 07:35] VITALS: BP 140/90; PULSE 66; RESP 14; O2SAT 100
[2024-05-01 07:40] VITALS: BP 142/96; PULSE 66; RESP 14; O2SAT 96
[2024-05-01] MEDS: LIDOCAINE HCL 1% LOCAL INJ 20 ML VIAL 5 ML INFILTRATE (07:40)
[2024-05-01] MEDS: BETAMETHASONE SODIUM PHOSPHATE PF INJ 6 MG/ML VIAL INFILTRATE (07:41)
[2024-05-01] MEDS: LIDOCAINE HCL 2% PF INJ 5 ML VIAL 1 ML INFILTRATE (07:42)
[2024-05-01 07:50] VITALS: BP 128/80; PULSE 66; RESP 16; O2SAT 100
== END 2024-05-01 08:02 | disposition home or self-care (01) ==
PROVIDERS: PCP Internal Medicine; Visit Provider Anesthesiology Pain Medicine
PROC: (CPT 64483; principal; 2024-05-01 07:30)
DX: M54.17 Radiculopathy, lumbosacral region (principal); M48.061 Spinal stenosis, lumbar region without neurogenic claudication
CPT/HCPCS: 64483; 64484; 99199